=== PATIENT | male | born 2000 | race Caucasian/White ===

== ENCOUNTER 2021-10-06 01:19 | Emergency (ER) | payer SELFPAY ==
[~2021-10-06] VITALS: Ht 177.8 cm; Wt 93.0 kg
--- NOTE | 2021-10-06 03:02 | NUR ---
BIBFAMILY. L ANKLE PAIN AND SWELLING S/P EVERSION WHILE PLAYING BASKETBALL. PATIENT ALERT AND ORIENTED X3. PT IN BED 11 AWAITING MD CHANEY.
[2021-10-06] MEDS ORDERED: IBUPROFEN 400 MG TABLET ONE (03:12)
[2021-10-06] MEDS ORDERED: IBUPROFEN 400 MG TABLET PO ONE (03:30)
[2021-10-06 04:46] VITALS: BP 131/80
--- NOTE | 2021-10-06 04:46 | NUR ---
Patient discharged to home in stable condition. Written and verbal after care instructions given. Patient verbalizes understanding of instruction.
== END 2021-10-06 04:46 | disposition home or self-care (01) ==
LOC: ER 01:24
DX: S93.402A Sprain of unspecified ligament of left ankle, initial encounter (principal); X50.1XXA Overexertion from prolonged static or awkward postures, initial encounter; Y93.67 Activity, basketball; Y92.310 Basketball court as the place of occurrence of the external cause; Y99.8 Other external cause status
CPT/HCPCS: 73610-TC